=== PATIENT | female | born 1995 | race Caucasian/White ===

== ENCOUNTER 2017-04-16 12:21 | Outpatient (CLI) | payer OTHER ==
--- NOTE | 2017-04-16 15:06 | RAD ---
TWO VIEW CHEST: History: Dyspnea. FINDINGS: Lungs are clear. No infiltrate. Heart and mediastinum appear normal. IMPRESSION: No acute finding. POS: [id number]
== END 2017-04-16 12:22 | disposition home or self-care (01) ==
LOC: RAD 12:21
PROVIDERS: ATTEND Internal Medicine Pulmonary Disease
DX: R06.00 Dyspnea, unspecified (principal)
CPT/HCPCS: 71020